=== PATIENT | male | born 1970 | race Caucasian/White ===

== ENCOUNTER 2017-10-28 18:07 | Emergency (ER) | payer SELFPAY ==
[~2017-10-28] VITALS: Ht 175.3 cm; Wt 65.0 kg
[2017-10-28 18:09] VITALS: BP 147/81; PULSE 94; RESP 16; TEMP 98.1; O2SAT 100
[2017-10-28] MEDS ORDERED: CART120C PO (18:30)
[2017-10-28] MEDS ORDERED: ASPI-516 CHEW (18:30)
[2017-10-28] MEDS ORDERED: ACETAMINOPHEN/HYDROcodone 325 MG/5 MG TAB PO ONE (19:30)
[2017-10-28] MEDS ORDERED: PROPARACAINE HCL 0.5% OPHT SOLN 15 ML BTL EACH EYE ONE (19:45)
[2017-10-28] MEDS ORDERED: IBUP-232 PO (20:13)
[2017-10-28] MEDS ORDERED: NORC5TAB PO (20:13)
[2017-10-28] MEDS ORDERED: POLY10O EACH EYE (20:13)
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
== END 2017-10-28 20:27 | disposition home or self-care (01) ==
LOC: NEPD 18:07
DX: T20.19XA Burn of first degree of multiple sites of head, face, and neck, initial encounter (principal); T26.42XA Burn of left eye and adnexa, part unspecified, initial encounter; T26.41XA Burn of right eye and adnexa, part unspecified, initial encounter; T15.02XA Foreign body in cornea, left eye, initial encounter; X08.8XXA Exposure to other specified smoke, fire and flames, initial encounter; Y93.G3 Activity, cooking and baking
CPT/HCPCS: 99283